=== PATIENT | male | born 1990 | race African-American/Black ===

== ENCOUNTER 2017-09-21 21:40 | Emergency (ER) | payer OTHER ==
[~2017-09-21] VITALS: Ht 175.3 cm; Wt 73.0 kg
[2017-09-21 21:45] VITALS: BP 126/90
[2017-09-21] MEDS ORDERED: CEFTRIAXONE 250 MG IM ONE (22:00)
[2017-09-21] MEDS ORDERED: AZITHROMYCIN 500 MG TABLET PO ONE (22:00)
[2017-09-21] MEDS ORDERED: AZITHROMYCIN 500 MG TABLET ONE (22:09)
[2017-09-21] MEDS ORDERED: CEFTRIAXONE 250 MG ONE (22:09)
[2017-09-21 22:34] LABS: MICROSCOPIC AUTO
[2017-09-21 22:36] LABS: CULTURE INDICATED? YES
== END 2017-09-21 23:38 | disposition home or self-care (01) ==
LOC: ED 22:31
DX: A54.01 Gonococcal cystitis and urethritis, unspecified (principal); N34.2 Other urethritis
CPT/HCPCS: 81001; 87086; 87491; 87591; 96372; 99284; J0696

== ENCOUNTER 2018-08-31 16:08 | Emergency (ER) | payer OTHER ==
[~2018-08-31] VITALS: Ht 175.3 cm; Wt 83.2 kg
[2018-08-31 16:19] VITALS: BP 130/87
== END 2018-08-31 17:00 | disposition home or self-care (01) ==
LOC: ED 16:48
DX: G89.11 Acute pain due to trauma (principal); M54.5 Low back pain; V49.49XA Driver injured in collision with other motor vehicles in traffic accident, initial encounter; Y93.89 Activity, other specified; Y92.89 Other specified places as the place of occurrence of the external cause; Y99.8 Other external cause status
CPT/HCPCS: 99283

== ENCOUNTER 2019-02-18 18:21 | Emergency (ER) | payer OTHER ==
[~2019-02-18] VITALS: Ht 175.3 cm; Wt 87.5 kg
[2019-02-18 18:26] VITALS: BP 151/94
[2019-02-18 18:47] LABS: BASOPHILS # (AUTO) 0.06 x10^3/uL (0-0.1); BASOPHILS % (AUTO) 1 % (0-1); EOSINOPHILS # (AUTO) 0.07 x10^3/uL (0-0.4); EOSINOPHILS % (AUTO) 1 % (1-7); LYMPHOCYTES # (AUTO) 3.35 x10^3/uL (1-3.4); LYMPHOCYTES % (AUTO) 54 % (22-44); MD NO; MEAN CORPUSCULAR HEMOGLOBIN 34.2 pg (27.5-34.5); MEAN CORPUSCULAR HGB CONC 34.4 g/dL (33.2-36.2); MEAN CORPUSCULAR VOLUME 99.3 fL (81-97); MEAN PLATELET VOLUME 7.6 fL (7.4-10.4); MONOCYTES # (AUTO) 0.55 x10^3/uL (0.2-0.8); MONOCYTES % (AUTO) 9 % (2-9); NEUTROPHILS # (AUTO) 2.18 x10^3/uL (1.8-6.8); NEUTROPHILS % (AUTO) 35 % (42-75); PLATELET COUNT 351 x10^3/uL (130-400); RED BLOOD COUNT 4.65 x10^6/uL (4.38-5.82); RED CELL DISTRIBUTION WIDTH 12.3 % (9.4-14.8)
[2019-02-18 18:59] LABS: ALANINE AMINOTRANSFERASE 39 U/L (12-78); ALBUMIN 4.4 g/dL (3.4-5.0); ANION GAP 6 mmol/L (5-15); CALCIUM 9.9 mg/dL (8.5-10.1); CHLORIDE 105 mmol/L (98-107)
[2019-02-18 19:03] LABS: ALKALINE PHOSPHATASE 62 U/L (45-117); BILIRUBIN,TOTAL 0.5 mg/dL (0.2-1.0); TOTAL PROTEIN 8.4 g/dL (6.4-8.2); TROPONIN I < 0.015 ng/mL (0.000-0.045)
[2019-02-18] MEDS ORDERED: KETOROLAC 60 MG/2 ML ONE (20:56)
[2019-02-18] MEDS ORDERED: KETOROLAC 30 MG/1 ML IM ONE (21:00)
== END 2019-02-18 21:16 | disposition home or self-care (01) ==
LOC: ED 21:15
DX: R07.89 Other chest pain (principal)
CPT/HCPCS: 36415; 71046; 80053; 84484; 85025; 93005; 96372; 99284; J1885

== ENCOUNTER 2020-08-01 23:21 | Emergency (ER) | payer SELFPAY ==
[~2020-08-01] VITALS: Ht 175.3 cm; Wt 79.0 kg
--- NOTE | 2020-08-02 00:59 | NUR ---
PT PRESENTS TO ED WITH PAIN WHEN URINATING. PT THINKS IT MIGHT BE AN STD. PT IN GOWN, RESTING ON GURNEY.
--- NOTE | 2020-08-02 01:03 | NUR ---
pt provided ua sample, ua sent to lab
[2020-08-02 01:23] LABS: MICROSCOPIC INDICATED
[2020-08-02] MEDS ORDERED: CEFTRIAXONE 1,000 MG ONE (01:40)
[2020-08-02] MEDS ORDERED: DOXYCYCLINE 100MG TABLET ONE (01:41)
--- NOTE | 2020-08-02 01:56 | NUR ---
Patient given discharge instructions and they have confirmed that they understand the instructions. Patient ambulatory with steady gait.
[2020-08-02 01:57] VITALS: BP 117/54
[2020-08-02] MEDS ORDERED: CEFTRIAXONE 1,000 MG IM ONE (02:00)
[2020-08-02] MEDS ORDERED: DOXYCYCLINE 100MG TABLET PO ONE (02:00)
== END 2020-08-02 01:59 | disposition home or self-care (01) ==
LOC: ED 08-02 00:30
DX: N34.2 Other urethritis (principal); R30.0 Dysuria
CPT/HCPCS: 81001; 87077; 87086; 87491; 87591; 96372; 99283; J0696